=== PATIENT | female | born 1990 ===

== ENCOUNTER 2025-01-26 08:51 | Outpatient (CLI) | payer OTHER | END 2025-01-26 08:56 | disposition home or self-care (01) | LOC: PRENATAL 08:51 | PROVIDERS: ATTEND Obstetrics & Gynecology Maternal & Fetal Medicine | DX: O36.80X0 Pregnancy with inconclusive fetal viability, not applicable or unspecified (principal); Z36.82 Encounter for antenatal screening for nuchal translucency; Z14.8 Genetic carrier of other disease; O34.10 Maternal care for benign tumor of corpus uteri, unspecified trimester; Z3A.12 12 weeks gestation of pregnancy ==

== ENCOUNTER → 2025-03-16 | Outpatient (CLI) | payer OTHER | END | disposition home or self-care (01) | LOC: PRENATAL 12:57 | PROVIDERS: ATTEND Obstetrics & Gynecology Maternal & Fetal Medicine | DX: O44.00 Complete placenta previa NOS or without hemorrhage, unspecified trimester (principal); O34.10 Maternal care for benign tumor of corpus uteri, unspecified trimester; Z3A.19 19 weeks gestation of pregnancy ==

== ENCOUNTER 2025-06-15 10:05 | Outpatient (CLI) | payer OTHER | END 2025-06-15 10:06 | disposition home or self-care (01) | LOC: PRENATAL 10:05 | PROVIDERS: ATTEND Obstetrics & Gynecology Maternal & Fetal Medicine | DX: O26.849 Uterine size-date discrepancy, unspecified trimester (principal); O36.8199 Decreased fetal movements, unspecified trimester, other fetus; O34.10 Maternal care for benign tumor of corpus uteri, unspecified trimester; O99.019 Anemia complicating pregnancy, unspecified trimester; Z3A.32 32 weeks gestation of pregnancy ==

== ENCOUNTER 2025-07-04 20:18 | Inpatient (IN) | payer OTHER ==
[~2025-07-04] VITALS: Ht 160 cm; Wt 2.3 kg
[2025-07-04 19:29] VITALS: BP 119/73
[2025-07-04] MEDS ORDERED: RINGERS SOLUTION,LACTATED 1,000 ML IV SCH (20:45)
[2025-07-04 21:23] LABS: BASO % 0.4 % (0.1-1.2); EOS # 0.04 (0.04-0.54); EOS % 0.3 % (0.7-7.0); LYMPH # 2.04 (1.18-3.74); LYMPH % 14.5 % (19.3-53.1); MEAN PLATELET VOLUME 9.90 fl (9.4-12.4); MONO # 1.43 (0.24-0.82); MONO % 10.1 % (4.7-12.5); NEUT # 10.13 (1.56-6.13); NEUT % 71.8 % (34.0-71.1); RED CELL DISTRIBUTION WIDTH 14.4 % (11.6-14.4)
[2025-07-04 21:24] LABS: URINE APPEARANCE Clear; URINE BILIRRUBIN Negative (NEGATIVE); URINE BLOOD Negative; URINE COLOR Yellow; URINE GLUCOSE Negative (NEGATIVE); URINE KETONE Negative (NEGATIVE); URINE LEUKOCYTE Negative; URINE NITRATE Negative; URINE PROTEIN Trace (NEGATIVE); URINE UROBILINOGEN 0.2 E.U./dl
[2025-07-04 21:27] LABS: URINE BACTERIA 1074.8 uL (0.0-1933); URINE EPITHELIAL CELLS 18.2 uL (0.0-38.8); URINE RBC 5.5 uL (0.0-20.8); URINE WBC 16.6 uL (0.0-23.2)
[2025-07-04 21:30] LABS: URINE CAST 0.14 uL (0.0-1.40)
[2025-07-04] MEDS ORDERED: PRENATA CHEWAB1 EACH PO (21:37)
[2025-07-04] MEDS ORDERED: IRON18 M1 PO (21:38)
[2025-07-04 21:43] LABS: INR < 0.93
[2025-07-04] MEDS ORDERED: AIRSUPRA 90-810.7 GM IH (21:44)
[2025-07-04 21:47] LABS: ALT/SGPT 16.0 U/L (12-78); AST/SGOT 14.0 U/L (15-37); BILIRUBIN TOTAL 0.18 mg/dL (0.3-1.2); BUN CREA RATIO 16.0 (7.0-25.0); CREATININE SERUM 0.62 mg/dL (0.55-1.02); GFR 110.19; GLOBULINA 3.9 G/DL (2.4-3.5); GLUCOSE FASTING 83.0 mg/dL (65-100); OSMOLALITY SERUM 278.0 MOSM/KG (275-295)
[2025-07-04 22:06] VITALS: BP 119/73
[2025-07-04 23:06] VITALS: BP 115/63; O2SAT 98
[2025-07-05 04:35] VITALS: BP 101/61
[2025-07-05 07:21] VITALS: BP 107/58
[2025-07-05] MEDS ORDERED: SOD FERRIC GLUC COMPLX/SUCROSE 62.5 MG in 0.9 % SODIUM CHLORIDE 50 ML IV SCH (09:00)
[2025-07-05] MEDS ORDERED: SOD FERRIC GLUC COMPLX/SUCROSE 62.5 MG/5 ML AMPUL IV SCH (09:00)
[2025-07-05 11:37] VITALS: BP 114/68
[2025-07-05 15:18] VITALS: BP 111/66
[2025-07-05 19:50] VITALS: BP 114/71
[2025-07-05 23:15] VITALS: BP 120/65
[2025-07-06 03:00] VITALS: BP 97/53
[2025-07-06 06:19] VITALS: BP 100/53; O2SAT 97
[2025-07-06] MEDS ORDERED: MORPHINE SULFATE 4 MG/ML VIAL IV ONE ×2 (10:10→23:30)
[2025-07-06 11:51] VITALS: BP 132/87
[2025-07-06] MEDS ORDERED: CEFAZOLIN SODIUM 1,000 MG VIAL IV SCH (13:15)
[2025-07-06 15:26] VITALS: BP 115/73
[2025-07-06] MEDS ORDERED: MORPHINE SULFATE 4 MG/ML CARTRIDGE IV PRN (20:15)
[2025-07-06] MEDS ORDERED: SIMETHICONE 125 MG CAPSULE PO SCH (21:00)
[2025-07-06] MEDS ORDERED: ERYTHROMYCIN BASE OPHT 1GM EACH TUBE OP ONE (22:15)
[2025-07-06] MEDS ORDERED: OXYTOCIN 1,000 ML IV SCH (22:15)
[2025-07-06] MEDS ORDERED: OXYTOCIN 10 UNITS/ML VIAL IV ONE (22:15)
[2025-07-06] MEDS ORDERED: RINGERS SOLUTION,LACTATED 1,000 ML IV SCH (22:15)
[2025-07-07 01:40] VITALS: BP 122/74
[2025-07-07 02:12] LABS: BASO % 0.2 % (0.1-1.2); EOS # 0.09 (0.04-0.54); EOS % 0.5 % (0.7-7.0); LYMPH # 2.10 (1.18-3.74); LYMPH % 11.6 % (19.3-53.1); MEAN PLATELET VOLUME 9.70 fl (9.4-12.4); MONO # 1.20 (0.24-0.82); MONO % 6.6 % (4.7-12.5); NEUT # 14.27 (1.56-6.13); NEUT % 79.1 % (34.0-71.1); RED CELL DISTRIBUTION WIDTH 14.3 % (11.6-14.4)
[2025-07-07 08:39] VITALS: BP 131/79
[2025-07-07] MEDS ORDERED: DOCUSATE SODIUM 100MG CAP PO SCH (09:00)
[2025-07-07] MEDS ORDERED: GABAPENTIN 300 MG CAPSULE PO SCH (09:45)
[2025-07-07] MEDS ORDERED: ACETAMINOPHEN 500 MG GEL..CAP PO PRN (09:45)
[2025-07-07 16:43] VITALS: BP 131/75
[2025-07-07] MEDS ORDERED: OxyCODONE HCL 5 MG TABLET (ROXICODONE) PO PRN (19:00)
[2025-07-08] VITALS: BP 122/79
[2025-07-08] MEDS ORDERED: PNV,CALCIUM 72/IRON/FOLIC ACID 1 TAB TABLET PO SCH (09:00)
[2025-07-08] MEDS ORDERED: FERROUS SULFATE 325 MG TABLET.EC PO SCH ×2 (09:00)
[2025-07-08 09:04] VITALS: BP 110/74
[2025-07-08] MEDS ORDERED: HYDROCORTISONE ACETATE 25 MG/SUPP.RECT SUPP.RECT RECTAL SCH (17:00)
[2025-07-08 18:41] VITALS: BP 113/73
[2025-07-09 00:41] VITALS: BP 108/67
[2025-07-09 08:00] VITALS: BP 111/74
== END 2025-07-09 17:44 | disposition home or self-care (01) | DRG 787 ==
LOC: OBS/DEL 20:18 → LDR 22:10 → O/R 07-06 19:20 → OB/GYN 07-06 21:22
PROVIDERS: Obstetrics & Gynecology; ADMIT Obstetrics & Gynecology; ATTEND Obstetrics & Gynecology
PROC: 4A1HXCZ Monitoring of Products of Conception, Cardiac Rate, External Approach (ICD-10-PCS; 2025-07-04)
PROC: BY4FZZZ Ultrasonography of Third Trimester, Single Fetus (ICD-10-PCS; 2025-07-04)
PROC: BY4FZZZ Ultrasonography of Third Trimester, Single Fetus (ICD-10-PCS; 2025-07-06)
PROC: 10D00Z1 Extraction of Products of Conception, Low, Open Approach (ICD-10-PCS; principal; 2025-07-06 19:00)
DX: O14.04 Mild to moderate pre-eclampsia, complicating childbirth (principal); O41.03X0 Oligohydramnios, third trimester, not applicable or unspecified; O99.02 Anemia complicating childbirth; D64.9 Anemia, unspecified; O26.853 Spotting complicating pregnancy, third trimester; O36.8130 Decreased fetal movements, third trimester, not applicable or unspecified; O60.14X0 Preterm labor third trimester with preterm delivery third trimester, not applicable or unspecified; Z3A.35 35 weeks gestation of pregnancy; Z37.0 Single live birth